=== PATIENT | female | born 1940 | race African-American/Black ===

== ENCOUNTER 2017-07-29 12:00 | Outpatient (RCR) | payer MEDICARE, BC ==
[~2017-07-29 12:00] MED LIST: NKM
== END 2017-08-17 | disposition home or self-care (01) ==
LOC: PTY 12:00
DX: S72.143D Displaced intertrochanteric fracture of unspecified femur, subsequent encounter for closed fracture with routine healing (principal); M81.0 Age-related osteoporosis without current pathological fracture; M19.90 Unspecified osteoarthritis, unspecified site
CPT/HCPCS: 97110; 97161; G8978; G8979

== ENCOUNTER 2017-08-19 12:50 | Outpatient (RCR) | payer MEDICARE, BC | END 2017-09-17 | disposition home or self-care (01) | LOC: PTY 12:50 | DX: S72.143D Displaced intertrochanteric fracture of unspecified femur, subsequent encounter for closed fracture with routine healing (principal) ==

== ENCOUNTER 2017-09-23 13:00 | Outpatient (RCR) | payer MEDICARE, BC | END 2017-10-18 | disposition home or self-care (01) | LOC: PTY 13:00 | DX: S72.143D Displaced intertrochanteric fracture of unspecified femur, subsequent encounter for closed fracture with routine healing (principal); M81.0 Age-related osteoporosis without current pathological fracture; H54.3 Unqualified visual loss, both eyes | CPT/HCPCS: 97110; 97116; 97140; G8978; G8979 ==

== ENCOUNTER 2017-10-28 12:50 | Outpatient (RCR) | payer MEDICARE, BC | END 2017-11-17 | disposition home or self-care (01) | LOC: PTY 12:50 | DX: S72.143D Displaced intertrochanteric fracture of unspecified femur, subsequent encounter for closed fracture with routine healing (principal); M81.0 Age-related osteoporosis without current pathological fracture; H54.7 Unspecified visual loss ==

== ENCOUNTER 2017-11-27 12:50 | Outpatient (RCR) | payer MEDICARE, BC | END 2017-12-18 | disposition home or self-care (01) | LOC: PTY 12:50 | DX: S72.143D Displaced intertrochanteric fracture of unspecified femur, subsequent encounter for closed fracture with routine healing (principal); M81.0 Age-related osteoporosis without current pathological fracture; H54.7 Unspecified visual loss ==

== ENCOUNTER 2017-12-20 12:30 | Outpatient (RCR) | payer MEDICARE, BC | END 2018-01-17 | disposition home or self-care (01) | LOC: PTY 12:30 | DX: S72.143D Displaced intertrochanteric fracture of unspecified femur, subsequent encounter for closed fracture with routine healing (principal); M19.90 Unspecified osteoarthritis, unspecified site; M81.0 Age-related osteoporosis without current pathological fracture; H54.7 Unspecified visual loss | CPT/HCPCS: 97110; 97116; G8979; G8980 ==